=== PATIENT | female | born 1950 | race Caucasian/White ===

== ENCOUNTER → 2021-04-28 | Outpatient (CLI) | payer MEDICARE ==
--- NOTE | 2021-04-28 16:34 | RAD ---
EXAMINATION: XR CHEST 2V CLINICAL HISTORY: Shortness of breath EXAM DATE/TIME: 04/28/2021 4:10 PM COMPARISON: None FINDINGS: Lines, Tubes, and Devices: None. Cardiomediastinal Silhouette: Within normal limits. Lungs and Pleura: No evidence of focal airspace consolidation or pleural effusion. Fairly symmetric p atchy opacities in the bilateral mid lung bases favor nipple shadows. Pulmonary vasculature unremarka ble. Bones and Soft Tissues: Partially visualized thoracolumbar curvature and degenerative changes. IMPRESSION: No evidence of acute cardiopulmonary abnormality. Electronically signed by: Jun Beaver DO (04/28/2021 4:32 PM) [id number]
[2021-04-28 17:36] LABS: BASO % 0 % (0-3); EOS # 0.2 x10^3/uL (0.0-0.7); EOS % 3 % (0-3); HEMATOCRIT 42.2 % (36.0-47.0); HEMOGLOBIN 14.5 g/dL (12.0-15.5); LYMPH # 2.5 x10^3/uL (1.0-4.8); LYMPH % 41 % (24-48); MEAN CORPUSCULAR HEMOGLOBIN 31 pg (25-35); MEAN CORPUSCULAR HGB CONC 34 g/dL (31-37); MEAN CORPUSCULAR VOLUME 90 fL (79-100); MONO # 0.5 x10^3/uL (0.0-1.1); MONO % 7 % (0-9); NEUT % 48 % (31-73); PLATELET COUNT 205 x10^3/uL (140-400); RED BLOOD COUNT 4.71 x10^6/uL (3.50-5.40); RED CELL DISTRIBUTION WIDTH 12.3 % (11.5-14.5); WHITE BLOOD COUNT 6.1 x10^3/uL (4.0-11.0)
== END ==
LOC: RAD 15:56
PROVIDERS: ATTEND Specialist
DX: J98.8 Other specified respiratory disorders (principal); R06.02 Shortness of breath
CPT/HCPCS: 36415; 71046; 85025

== ENCOUNTER → 2022-03-01 | Outpatient (CLI) | payer MEDICARE ==
--- NOTE | 2022-03-01 17:03 | RAD ---
XR KNEE_LT 1-2 VIEWS, XR KNEE_AP BILAT STANDING History: Reason: CHRONIC LT KNEE PAIN. / Spl. Instructions: / History: Technique: Standing AP view bilateral knees and 2 additional views of the left knee Comparison: None. Findings: Severe left knee degenerative changes most prominent within the medial compartment. Genu varus alignm ent. No dislocation. No acute fracture. Vascular calcifications. Mild to moderate right knee DJD on AP view. Impression: 1. Severe left knee DJD. Electronically signed by: Sunny Neely DO (03/01/2022 5:00 PM) [id number]
== END ==
LOC: RAD 12:59
PROVIDERS: ATTEND Orthopaedic Surgery Sports Medicine
DX: M17.0 Bilateral primary osteoarthritis of knee (principal); M21.162 Varus deformity, not elsewhere classified, left knee
CPT/HCPCS: 73560; 73565